=== PATIENT | female | born 1940 | race Caucasian/White ===

== ENCOUNTER → 2017-06-19 | Outpatient (REF) | payer MEDICARE | LOC: M LAB REF 13:07 | PROVIDERS: ATTEND Advanced Practice Midwife | DX: R30.0 Dysuria (principal) ==

== ENCOUNTER → 2019-04-23 | Outpatient (CLI) | payer MEDICARE ==
--- NOTE | 2019-04-23 15:29 | REP ---
RIGHT FOOT, FOUR VIEWS: HISTORY: Pain. There is no acute fracture or dislocation. The joint spaces are normal in appearance. IMPRESSION: There is no acute fracture or dislocation. Electronically Signed by Collin Haney MD 04/23/2019 03:44 P
== END ==
LOC: M ADAMS 14:55
PROVIDERS: ATTEND Physician Assistant Medical
DX: M79.671 Pain in right foot (principal)
CPT/HCPCS: 73630; G0463

== ENCOUNTER → 2019-07-31 | Outpatient (REF) | payer MEDICARE ==
[2019-07-31 13:21] LABS: BASO % 0.7 % (0.0-1.0); EOS # 0.2 10^3/uL (0.0-0.5); EOS % 3.1 % (0.0-3.0); HEMATOCRIT 40.4 % (36.0-47.0); HEMOGLOBIN 13.2 g/dl (12.0-15.5); LYMPH # 1.9 10^3/uL (1.5-5.0); LYMPH % 33.6 % (24.0-44.0); MEAN CORPUSCULAR HGB CONC 32.7 g/dl (32.0-36.5); MEAN CORPUSCULAR VOLUME 91.8 fl (80.0-96.0); MONO # 0.4 10^3/uL (0.0-0.8); MONO % 7.3 % (0.0-5.0); NEUTROPHILS % 54.9 % (36.0-66.0); PLATELET COUNT, AUTOMATED 142 10^3/uL (150-450); WHITE BLOOD COUNT 5.5 10^3/uL (4.0-10.0)
[2019-07-31 13:43] LABS: ALBUMIN 3.6 GM/DL (3.2-5.2); ALT/SGPT 72 U/L (12-78); BILIRUBIN,TOTAL 0.3 MG/DL (0.2-1.0); BLOOD UREA NITROGEN 22 MG/DL (7-18); CARBON DIOXIDE LEVEL 28 MEQ/L (21-32); CHLORIDE LEVEL 104 MEQ/L (98-107); CHOLESTEROL LEVEL 141 MG/DL (<200); CHOLESTEROL RISK RATIO 2.877 (<5); CREATININE FOR GFR 0.84 MG/DL (0.55-1.30); GLOMERULAR FILTRATION RATE > 60.0 (>39); GLUCOSE, FASTING 158 MG/DL (70-100); HDL CHOLESTEROL 49 MG/DL (>40); LDL CHOLESTEROL 60 MG/DL (<100); NON-HDL-C 92 MG/DL; POTASSIUM SERUM 4.4 MEQ/L (3.5-5.1); SODIUM LEVEL 140 MEQ/L (136-145); TOTAL PROTEIN 6.4 GM/DL (6.4-8.2); TRIGLYCERIDES LEVEL 162 MG/DL (<150)
[2019-07-31 13:57] LABS: HEMOGLOBIN A1c 8.1 %
[2019-07-31 14:07] LABS: CREATININE, URINE 94.7 MG/DL; MALB URINE SIEMENS 26.9 MG/L; MAU/CREAT RATIO 28.4 MCG/MG (0.0-30.0)
== END ==
LOC: M SFHCADAM 08:40
PROVIDERS: ATTEND Physician Assistant Medical
DX: E11.9 Type 2 diabetes mellitus without complications (principal); I10 Essential (primary) hypertension; E78.2 Mixed hyperlipidemia; M79.671 Pain in right foot

== ENCOUNTER → 2019-10-22 | Outpatient (REF) | payer MEDICARE ==
[2019-10-22 18:45] LABS: APPEARANCE, URINE HAZY (CLEAR); BACTERIA, URINE AUTO 1+ (NEGATIVE); BILIRUBIN, URINE AUTO NEGATIVE (NEGATIVE); BLOOD, URINE BLOOD NEGATIVE (NEGATIVE); COLOR, URINE YELLOW (YELLOW); GLUCOSE, URINE (UA) AUTO 3+ mg/dL (NEGATIVE); KETONE, URINE AUTO NEGATIVE (NEGATIVE); LEUKOCYTE ESTERASE, URINE AUTO 2+ (NEGATIVE); MUCUS, URINE SMALL (NEGATIVE); NITRITE, URINE AUTO POSITIVE (NEGATIVE); PROTEIN, URINE AUTO NEGATIVE (NEGATIVE); RBC, URINE AUTO 3 /HPF (0-3); SQUAMOUS EPITHELIAL CELL UR AU 1 /HPF (0-6); UROBILINOGEN, URINE AUTO 0.2 mg/dL (0.0-2.0); WBC, URINE AUTO 42 /HPF (0-3)
== END ==
LOC: M SFHCADAM 17:00
PROVIDERS: ATTEND Physician Assistant Medical
DX: R35.0 Frequency of micturition (principal)
CPT/HCPCS: 81001; 81002; 87088; 87186; G0463

== ENCOUNTER → 2020-01-18 | Outpatient (CLI) | payer MEDICARE | LOC: M ADAMS 10:34 | PROVIDERS: ATTEND Physician Assistant Medical | DX: E11.9 Type 2 diabetes mellitus without complications (principal) ==

== ENCOUNTER → 2020-01-18 | Outpatient (REF) | payer MEDICARE ==
[2020-01-18 18:09] LABS: ALBUMIN 4.1 GM/DL (3.2-5.2); ALT/SGPT 67 U/L (12-78); BILIRUBIN,TOTAL 0.3 MG/DL (0.2-1.0); BLOOD UREA NITROGEN 20 MG/DL (7-18); CALCIUM LEVEL 9.2 MG/DL (8.8-10.2); CARBON DIOXIDE LEVEL 29 MEQ/L (21-32); CHLORIDE LEVEL 104 MEQ/L (98-107); CREATININE FOR GFR 0.92 MG/DL (0.55-1.30); GLOMERULAR FILTRATION RATE > 60.0 (>39); GLUCOSE, FASTING 253 MG/DL (70-100); POTASSIUM SERUM 4.2 MEQ/L (3.5-5.1); SODIUM LEVEL 139 MEQ/L (136-145)
[2020-01-18 18:20] LABS: HEMOGLOBIN A1c 8.1 %
== END ==
LOC: M SFHCADAM 10:33
PROVIDERS: ATTEND Physician Assistant Medical
DX: E11.9 Type 2 diabetes mellitus without complications (principal)

== ENCOUNTER → 2020-05-21 | Outpatient (REF) | payer MEDICARE ==
[2020-05-21 14:19] LABS: APPEARANCE, URINE HAZY (CLEAR); BACTERIA, URINE AUTO 2+ (NEGATIVE); BILIRUBIN, URINE AUTO NEGATIVE (NEGATIVE); BLOOD, URINE BLOOD NEGATIVE (NEGATIVE); COLOR, URINE YELLOW (YELLOW); GLUCOSE, URINE (UA) AUTO 3+ mg/dL (NEGATIVE); KETONE, URINE AUTO NEGATIVE (NEGATIVE); LEUKOCYTE ESTERASE, URINE AUTO 3+ (NEGATIVE); NITRITE, URINE AUTO NEGATIVE (NEGATIVE); PROTEIN, URINE AUTO NEGATIVE (NEGATIVE); RBC, URINE AUTO 2 /HPF (0-3); SQUAMOUS EPITHELIAL CELL UR AU 0 /HPF (0-6); UROBILINOGEN, URINE AUTO 0.2 mg/dL (0.0-2.0); WBC, URINE AUTO 48 /HPF (0-3)
[2020-05-21 14:27] LABS: CALCIUM LEVEL 9.5 MG/DL (8.8-10.2); CREATININE FOR GFR 0.96 MG/DL (0.55-1.30); POTASSIUM SERUM 4.3 MEQ/L (3.5-5.1)
[2020-05-21 16:23] LABS: HEMOGLOBIN A1c 8.1 %
== END ==
LOC: M SFHCADAM 09:17
PROVIDERS: ATTEND Physician Assistant Medical
DX: R35.0 Frequency of micturition (principal); E11.9 Type 2 diabetes mellitus without complications

== ENCOUNTER → 2020-12-02 | Outpatient (REF) | payer MEDICARE ==
[2020-12-02 13:21] LABS: BASO # 0.1 10^3/uL (0.0-0.2); BASO % 0.8 % (0.0-1.0); EOS # 0.4 10^3/uL (0.0-0.5); EOS % 4.9 % (0.0-3.0); HEMATOCRIT 40.7 % (36.0-47.0); HEMOGLOBIN 13.2 g/dl (12.0-15.5); LYMPH # 2.3 10^3/uL (1.5-5.0); LYMPH % 32.1 % (24.0-44.0); MEAN CORPUSCULAR HEMOGLOBIN 28.9 pg (27.0-33.0); MEAN CORPUSCULAR HGB CONC 32.4 g/dl (32.0-36.5); MEAN CORPUSCULAR VOLUME 89.1 fl (80.0-96.0); MONO # 0.5 10^3/uL (0.0-0.8); MONO % 7.2 % (0.0-5.0); NEUTROPHILS # 3.9 10^3/uL (1.5-8.5); NEUTROPHILS % 54.7 % (36.0-66.0); PLATELET COUNT, AUTOMATED 139 10^3/uL (150-450); RED BLOOD COUNT 4.57 10^6/uL (4.00-5.40); WHITE BLOOD COUNT 7.1 10^3/uL (4.0-10.0)
[2020-12-02 13:55] LABS: ALBUMIN 3.9 GM/DL (3.2-5.2); ALT/SGPT 49 U/L (12-78); BILIRUBIN,TOTAL 0.2 MG/DL (0.2-1.0); BLOOD UREA NITROGEN 21 MG/DL (7-18); CALCIUM LEVEL 9.7 MG/DL (8.8-10.2); CARBON DIOXIDE LEVEL 31 MEQ/L (21-32); CHLORIDE LEVEL 104 MEQ/L (98-107); CHOLESTEROL LEVEL 175 MG/DL (<200); CHOLESTEROL RISK RATIO 3.017 (<5); CREATININE FOR GFR 0.91 MG/DL (0.55-1.30); GLOMERULAR FILTRATION RATE > 60.0 (>39); GLUCOSE, FASTING 185 MG/DL (70-100); HDL CHOLESTEROL 58 MG/DL (>40); LDL CHOLESTEROL 75 MG/DL (<100); NON-HDL-C 117 MG/DL; POTASSIUM SERUM 4.6 MEQ/L (3.5-5.1); SODIUM LEVEL 142 MEQ/L (136-145); TOTAL 25(OH) VITAMIN D 51.3 NG/ML (30.0-100.0); TOTAL PROTEIN 6.9 GM/DL (6.4-8.2); TRIGLYCERIDES LEVEL 210 MG/DL (<150)
[2020-12-02 13:58] LABS: MALB URINE SIEMENS 20.9 MG/L
[2020-12-02 14:15] LABS: HEMOGLOBIN A1c 7.5 %
== END ==
LOC: M SFHCADAM 08:44
PROVIDERS: ATTEND Physician Assistant Medical
DX: I10 Essential (primary) hypertension (principal); E78.2 Mixed hyperlipidemia; K76.0 Fatty (change of) liver, not elsewhere classified; E11.9 Type 2 diabetes mellitus without complications; K21.9 Gastro-esophageal reflux disease without esophagitis; Z79.899 Other long term (current) drug therapy

== ENCOUNTER → 2021-03-30 | Outpatient (REF) | payer MEDICARE ==
[2021-03-30 12:44] LABS: APPEARANCE, URINE HAZY (CLEAR); BACTERIA, URINE AUTO NEGATIVE (NEGATIVE); BILIRUBIN, URINE AUTO NEGATIVE (NEGATIVE); BLOOD, URINE BLOOD NEGATIVE (NEGATIVE); COLOR, URINE YELLOW (YELLOW); GLUCOSE, URINE (UA) AUTO 3+ mg/dL (NEGATIVE); KETONE, URINE AUTO NEGATIVE (NEGATIVE); LEUKOCYTE ESTERASE, URINE AUTO 2+ (NEGATIVE); NITRITE, URINE AUTO NEGATIVE (NEGATIVE); PROTEIN, URINE AUTO NEGATIVE (NEGATIVE); RBC, URINE AUTO 2 /HPF (0-3); SPECIFIC GRAVITY URINE AUTO 1.018 (1.002-1.035); SQUAMOUS EPITHELIAL CELL UR AU 0 /HPF (0-6); UROBILINOGEN, URINE AUTO 0.2 mg/dL (0.0-2.0); WBC, URINE AUTO 26 /HPF (0-3)
== END ==
LOC: M SFHCADAM 11:02
PROVIDERS: ATTEND Physician Assistant Medical
DX: R39.15 Urgency of urination (principal)

== ENCOUNTER → 2021-03-30 | Outpatient (CLI) | payer MEDICARE ==
--- NOTE | 2021-03-30 11:18 | REP ---
INDICATION: RIGHT LEG PAIN. COMPARISON: None TECHNIQUE: AP and frog-lateral views FINDINGS: There is moderate asymmetric hip joint space narrowing with femoral head marginal osteophytosis. There is no acute fracture, dislocation, or subluxation. IMPRESSION: Chronic changes as described above. <Electronically signed by Trae Michael > 03/30/21 1117
--- NOTE | 2021-03-30 11:20 | REP ---
INDICATION: RIGHT LEG PAIN. COMPARISON: None. TECHNIQUE: Six views FINDINGS: There is a [id number]-jhdpsyfr dextroconvex thoracolumbar curve. There is bilateral marginal osteophytosis at all levels. There is moderate to severe disc space narrowing at all levels particularly L1-2. There is anterior lipping at every level. Endplate sclerosis is seen L1-2 and L2-3. Vertebral body height is within normal limits. Degenerative facet joint changes are present at every level bilaterally particularly L4-5 and L5-S1. IMPRESSION: Chronic changes as described above. <Electronically signed by Trae Michael > 03/30/21 [id number]
== END ==
LOC: M ADAMS 10:43
PROVIDERS: ATTEND Physician Assistant Medical
DX: M51.36 Other intervertebral disc degeneration, lumbar region (principal); M51.37 Other intervertebral disc degeneration, lumbosacral region; M16.11 Unilateral primary osteoarthritis, right hip; M79.604 Pain in right leg

== ENCOUNTER → 2021-04-19 | Outpatient (CLI) | payer MEDICARE ==
--- NOTE | 2021-04-19 14:13 | REP ---
INDICATION: PAIN IN LEFT HIP. COMPARISON: Only a two view exam of the right hip obtained 03/30/2021 TECHNIQUE: Standing AP view of the pelvis FINDINGS: There is bilateral asymmetric hip joint space narrowing which is moderate. There is no evidence of an acute fracture, dislocation, or subluxation. The appearance of the right hip is essentially unchanged from the prior exam obtained 03/30/2021 IMPRESSION: As above <Electronically signed by Trae Michael > 04/19/21 [id number]
== END ==
LOC: M SOG 08:22
PROVIDERS: ATTEND Orthopaedic Surgery Adult Reconstructive Orthopaedic Surgery
DX: M25.552 Pain in left hip (principal)

== ENCOUNTER → 2021-05-07 | Outpatient (CLI) | payer MEDICARE ==
[~2021-05-07] MED LIST: BUPIVACAINE HCL 0.5% 10ML VIAL As Ordered ONE; ISOVUE-300 61% 50ML VIAL As Ordered ONE; LIDOCAINE 1% MDV 20ML VIAL As Ordered ONE; methylPREDNISolone 80MG/ML SUSP 1ML VIAL (J1040) As Ordered ONE
--- NOTE | 2021-05-07 14:51 | REP ---
INDICATION: OA OF RT HIP. COMPARISON: None TECHNIQUE: The procedure was performed by SCARLET Lynn, under the direct supervision of Dr. Garcia. The right femoral neck joint space was localized using fluoroscopic guidance. The skin was prepped and draped in a sterile fashion. Approximately 5 mL of 1% Lidocaine 10 mg/ml was used as a local anesthetic. Using fluoroscopic guidance, a #22 gauge spinal needle was inserted and advanced into the right femoral neck joint space. Approximately 1 mL of Isovue 300 was injected to verify placement. Four mL of a solution containing 3 mL 0.5% bupivacaine 5 mg/ml and 1 mL Depo-Medrol 80 milligrams/milliliter was injected into the joint space. The needle was removed and hemostasis was achieved. FINDINGS: The patient tolerated the procedure well and there were no immediate complications. IMPRESSION: 1. Fluoroscopically guided right hip intra-articular pain injection. 0.1 minutes of fluoroscopy time was utilized for this procedure. Some fluoroscopic images are performed with last image hold technology. These images require no additional radiation. <Electronically signed by Marissa Savage > 05/07/21 122 <Electronically signed by Elias Gracia > 05/07/21 [id number]
== END ==
LOC: M RADPRO 10:16
PROVIDERS: ATTEND Orthopaedic Surgery Adult Reconstructive Orthopaedic Surgery
DX: M16.11 Unilateral primary osteoarthritis, right hip (principal)
CPT/HCPCS: 20610; 77002; J1040; Q9967

== ENCOUNTER → 2021-05-28 | Outpatient (REF) | payer MEDICARE ==
[2021-05-28 13:23] LABS: APPEARANCE, URINE CLOUDY (CLEAR); BACTERIA, URINE AUTO 1+ (NEGATIVE); BILIRUBIN, URINE AUTO NEGATIVE (NEGATIVE); BLOOD, URINE BLOOD NEGATIVE (NEGATIVE); COLOR, URINE YELLOW (YELLOW); GLUCOSE, URINE (UA) AUTO 3+ mg/dL (NEGATIVE); KETONE, URINE AUTO NEGATIVE (NEGATIVE); LEUKOCYTE ESTERASE, URINE AUTO 3+ (NEGATIVE); MUCUS, URINE SMALL (NEGATIVE); NITRITE, URINE AUTO NEGATIVE (NEGATIVE); PROTEIN, URINE AUTO NEGATIVE (NEGATIVE); RBC, URINE AUTO 6 /HPF (0-3); SPECIFIC GRAVITY URINE AUTO 1.015 (1.002-1.035); SQUAMOUS EPITHELIAL CELL UR AU 0 /HPF (0-6); UROBILINOGEN, URINE AUTO 0.2 mg/dL (0.0-2.0); WBC, URINE AUTO 89 /HPF (0-3)
== END ==
LOC: M LAB REF 12:27
PROVIDERS: ATTEND Physician Assistant
DX: R30.0 Dysuria (principal)

== ENCOUNTER → 2021-06-02 | Outpatient (REF) | payer MEDICARE ==
[2021-06-02 15:03] LABS: BASO % 0.6 % (0.0-1.0); EOS # 0.2 10^3/uL (0.0-0.5); EOS % 3.3 % (0.0-3.0); HEMATOCRIT 40.3 % (36.0-47.0); HEMOGLOBIN 12.8 g/dl (12.0-15.5); LYMPH % 29.8 % (24.0-44.0); MEAN CORPUSCULAR HEMOGLOBIN 28.8 pg (27.0-33.0); MEAN CORPUSCULAR HGB CONC 31.8 g/dl (32.0-36.5); MEAN CORPUSCULAR VOLUME 90.8 fl (80.0-96.0); MONO # 0.5 10^3/uL (0.0-0.8); MONO % 7.1 % (2.0-8.0); NEUTROPHILS # 3.9 10^3/uL (1.5-8.5); NEUTROPHILS % 58.7 % (36.0-66.0); PLATELET COUNT, AUTOMATED 146 10^3/uL (150-450); RED BLOOD COUNT 4.44 10^6/uL (4.00-5.40); WHITE BLOOD COUNT 6.6 10^3/uL (4.0-10.0)
[2021-06-02 15:15] LABS: HEMOGLOBIN A1c 7.3 %
[2021-06-02 15:46] LABS: ALBUMIN 3.6 GM/DL (3.2-5.2); BILIRUBIN,TOTAL 0.4 MG/DL (0.2-1.0); CHOLESTEROL RISK RATIO 3.25 (<5); CREATININE FOR GFR 1.06 MG/DL (0.55-1.30); GLOMERULAR FILTRATION RATE 53.4 (>39); POTASSIUM SERUM 5.5 MEQ/L (3.5-5.1); THYROID STIMULATING HORMONE 1.73 uIU/ML (0.358-3.740); TOTAL 25(OH) VITAMIN D 38.5 NG/ML (30.0-100.0); TOTAL PROTEIN 6.6 GM/DL (6.4-8.2)
== END ==
LOC: M SFHCADAM 09:03
PROVIDERS: ATTEND Physician Assistant Medical
DX: E78.2 Mixed hyperlipidemia (principal); E11.9 Type 2 diabetes mellitus without complications; K75.81 Nonalcoholic steatohepatitis (NASH)

== ENCOUNTER → 2021-06-18 | Outpatient (REF) | payer MEDICARE | LOC: M SFHCADAM 14:44 | PROVIDERS: ATTEND Family Medicine | DX: R39.15 Urgency of urination (principal) ==

== ENCOUNTER → 2021-10-21 | Outpatient (CLI) | payer MEDICARE ==
--- NOTE | 2021-10-21 16:40 | REP ---
INDICATION: HIP OSTEOARTHRITIS. COMPARISON: 04/19/2021. TECHNIQUE: Single AP view pelvis and hips. FINDINGS: Once again the iliac crests are not visualized. There is no acute fracture or dislocation. There is stable asymmetric joint space narrowing of the right hip joint. IMPRESSION: Stable exam. <Electronically signed by Elias Garcia > 10/21/21 [id number]
== END ==
LOC: M SOG 11:38
PROVIDERS: ATTEND Orthopaedic Surgery Adult Reconstructive Orthopaedic Surgery
DX: M16.9 Osteoarthritis of hip, unspecified (principal)

== ENCOUNTER → 2021-11-17 | Outpatient (REF) | payer MEDICARE ==
[2021-11-17 12:34] LABS: BASO # 0.1 10^3/uL (0.0-0.2); EOS # 0.3 10^3/uL (0.0-0.5); EOS % 5.4 % (0.0-3.0); HEMATOCRIT 40.4 % (36.0-47.0); LYMPH % 31.4 % (24.0-44.0); MEAN CORPUSCULAR HEMOGLOBIN 28.6 pg (27.0-33.0); MEAN CORPUSCULAR HGB CONC 32.2 g/dl (32.0-36.5); MEAN CORPUSCULAR VOLUME 88.8 fl (80.0-96.0); MONO # 0.4 10^3/uL (0.0-0.8); NEUTROPHILS # 3.5 10^3/uL (1.5-8.5); NEUTROPHILS % 54.9 % (36.0-66.0); PLATELET COUNT, AUTOMATED 152 10^3/uL (150-450); RED BLOOD COUNT 4.55 10^6/uL (4.00-5.40); WHITE BLOOD COUNT 6.3 10^3/uL (4.0-10.0)
[2021-11-17 13:54] LABS: ALBUMIN 3.6 GM/DL (3.2-5.2); ALT/SGPT 26 U/L (12-78); BILIRUBIN,TOTAL 0.3 MG/DL (0.2-1.0); BLOOD UREA NITROGEN 15 MG/DL (7-18); CARBON DIOXIDE LEVEL 30 MEQ/L (21-32); CHLORIDE LEVEL 106 MEQ/L (98-107); CHOLESTEROL LEVEL 163 MG/DL (<200); CHOLESTEROL RISK RATIO 2.963 (<5); CREATININE FOR GFR 0.84 MG/DL (0.55-1.30); GLOMERULAR FILTRATION RATE > 60.0 (>39); GLUCOSE, FASTING 143 MG/DL (70-100); HDL CHOLESTEROL 55 MG/DL (>40); LDL CHOLESTEROL 70 MG/DL (<100); NON-HDL-C 108 MG/DL; POTASSIUM SERUM 4.3 MEQ/L (3.5-5.1); SODIUM LEVEL 141 MEQ/L (136-145); TOTAL 25(OH) VITAMIN D 31.9 NG/ML (30.0-100.0); TOTAL PROTEIN 6.3 GM/DL (6.4-8.2); TRIGLYCERIDES LEVEL 188 MG/DL (<150)
[2021-11-17 14:03] LABS: HEMOGLOBIN A1c 7.2 %
== END ==
LOC: M SFHCADAM 08:00
PROVIDERS: ATTEND Physician Assistant Medical
DX: E11.9 Type 2 diabetes mellitus without complications (principal); I10 Essential (primary) hypertension; E78.2 Mixed hyperlipidemia; K75.81 Nonalcoholic steatohepatitis (NASH); K21.9 Gastro-esophageal reflux disease without esophagitis

== ENCOUNTER → 2021-11-25 | Outpatient (REF) | payer MEDICARE | LOC: M SFHCADAM 13:49 | PROVIDERS: ATTEND Physician Assistant Medical | DX: R39.15 Urgency of urination (principal) ==

== ENCOUNTER → 2022-01-24 | Outpatient (CLI) | payer MEDICARE ==
[~2022-01-24] MED LIST changes: -BUPIVACAINE HCL 0.5% 10ML VIAL As Ordered ONE; +FLUTISP; +GLIM4TAB5 PO; -ISOVUE-300 61% 50ML VIAL As Ordered ONE; +LEVO25TA5 PO; -LIDOCAINE 1% MDV 20ML VIAL As Ordered ONE; +LISI10TA22 PO; +METF10004 PO; +MULT-90 PO; +OMEG10002 PO; +OMEP-173 PO; +SIMV40TA20 PO; +VITA100062 PO; +VITA400C83 PO; -methylPREDNISolone 80MG/ML SUSP 1ML VIAL (J1040) As Ordered ONE
== END ==
LOC: M RAD 17:05
PROVIDERS: ATTEND Orthopaedic Surgery Adult Reconstructive Orthopaedic Surgery
DX: M17.11 Unilateral primary osteoarthritis, right knee (principal)

== ENCOUNTER 2022-01-26 10:48 | Outpatient (RCR) | payer MEDICARE ==
[2022-02-08] MEDS ORDERED: OXYC-517 PO (10:22)
== END 2022-02-10 ==
LOC: M PT 10:48
PROVIDERS: ATTEND Orthopaedic Surgery Adult Reconstructive Orthopaedic Surgery
DX: R26.2 Difficulty in walking, not elsewhere classified (principal)

== ENCOUNTER → 2022-01-27 | Outpatient (REF) | payer MEDICARE ==
[~2022-01-27] MED LIST changes: +OXYC-517 PO
[2022-01-27 13:51] LABS: AMORPHOUS SEDIMENT SMALL (NEGATIVE); APPEARANCE, URINE CLOUDY (CLEAR); BACTERIA, URINE AUTO 1+ (NEGATIVE); BILIRUBIN, URINE AUTO NEGATIVE (NEGATIVE); BLOOD, URINE BLOOD NEGATIVE (NEGATIVE); COLOR, URINE YELLOW (YELLOW); GLUCOSE, URINE (UA) AUTO 3+ mg/dL (NEGATIVE); KETONE, URINE AUTO NEGATIVE (NEGATIVE); LEUKOCYTE ESTERASE, URINE AUTO 3+ (NEGATIVE); MUCUS, URINE SMALL (NEGATIVE); NITRITE, URINE AUTO NEGATIVE (NEGATIVE); PROTEIN, URINE AUTO NEGATIVE (NEGATIVE); RBC, URINE AUTO 4 /HPF (0-3); SPECIFIC GRAVITY URINE AUTO 1.009 (1.002-1.035); SQUAMOUS EPITHELIAL CELL UR AU 1 /HPF (0-6); UROBILINOGEN, URINE AUTO 0.2 mg/dL (0.0-2.0); WBC, URINE AUTO 108 /HPF (0-3)
== END ==
LOC: M SFHCADAM 12:24
PROVIDERS: ATTEND Physician Assistant Medical
DX: R39.15 Urgency of urination (principal)

== ENCOUNTER → 2022-01-31 | Outpatient (REF) | payer MEDICARE ==
[2022-01-31 16:53] LABS: BASO # 0.1 10^3/uL (0.0-0.2); BASO % 0.7 % (0.0-1.0); EOS # 0.4 10^3/uL (0.0-0.5); EOS % 4.1 % (0.0-3.0); HEMATOCRIT 41.2 % (36.0-47.0); HEMOGLOBIN 13.8 g/dl (12.0-15.5); LYMPH # 2.3 10^3/uL (1.5-5.0); LYMPH % 25.5 % (24.0-44.0); MEAN CORPUSCULAR HEMOGLOBIN 29.6 pg (27.0-33.0); MEAN CORPUSCULAR HGB CONC 33.5 g/dl (32.0-36.5); MEAN CORPUSCULAR VOLUME 88.2 fl (80.0-96.0); MONO # 0.5 10^3/uL (0.0-0.8); NEUTROPHILS # 5.6 10^3/uL (1.5-8.5); NEUTROPHILS % 63.2 % (36.0-66.0); PLATELET COUNT, AUTOMATED 171 10^3/uL (150-450); RED BLOOD COUNT 4.67 10^6/uL (4.00-5.40); WHITE BLOOD COUNT 8.9 10^3/uL (4.0-10.0)
[2022-01-31 17:15] LABS: ALBUMIN 3.9 GM/DL (3.2-5.2); ALT/SGPT 27 U/L (12-78); BILIRUBIN,TOTAL 0.3 MG/DL (0.2-1.0); BLOOD UREA NITROGEN 19 MG/DL (7-18); CALCIUM LEVEL 9.7 MG/DL (8.8-10.2); CARBON DIOXIDE LEVEL 30 MEQ/L (21-32); CHLORIDE LEVEL 104 MEQ/L (98-107); GLOMERULAR FILTRATION RATE > 60.0 (>39); GLUCOSE, FASTING 103 MG/DL (70-100); POTASSIUM SERUM 4.1 MEQ/L (3.5-5.1); SODIUM LEVEL 139 MEQ/L (136-145)
== END ==
LOC: M SFHCADAM 14:31
PROVIDERS: ATTEND Physician Assistant Medical
DX: Z01.818 Encounter for other preprocedural examination (principal); M16.11 Unilateral primary osteoarthritis, right hip

== ENCOUNTER → 2022-02-02 | Outpatient (CLI) | payer MEDICARE ==
[~2022-02-02] MED LIST changes: -OXYC-517 PO
== END ==
LOC: M LABSMTC 10:45
PROVIDERS: ATTEND Anesthesiology
DX: Z11.52 Encounter for screening for COVID-19 (principal)

== ENCOUNTER 2022-02-07 08:56 | Inpatient (IN) | payer MEDICARE ==
[~2022-02-07] VITALS: Ht 167.6 cm; Wt 73.7 kg
[~2022-02-07 08:56] MED LIST changes: +ACETAMINOPHEN 500 MG TAB PO ONE; +LIDOCAINE 2% 100MG/5ML SDV (FOR ANES.) As Ordered ONE; +LR 1,000 ML IV ONE; +NAPROXEN 250 MG TAB PO ONE; +NS 1,000 ML IV ONE; +ONDANSETRON 4MG/2ML VIAL As Ordered ONE; +PREGABALIN 25 MG CAP (LYRICA) PO ONE; +ROCURONIUM BROMIDE 50 MG/5 ML VIAL As Ordered ONE; +ROPIVA 125MG/EPINEPH 0.25MG/CLONID 40MCG/KETOR 15MG IN NS 50ML SYRINGE PA ONE; +SUGAMMADEX SODIUM 500 MG/5 ML VIAL (BRIDION) As Ordered ONE; +VANCOMYCIN HCL 1,000 MG, VIAL MATE ADAPTER 1 EACH in NS 250 ML IV ONE; +dexameTHASONE 4 MG/ML 1ML VIAL (J1100 PER 1MG) As Ordered ONE; +dexameTHASONE 4 MG/ML 1ML VIAL (J1100 PER 1MG) IV ONE; +fentaNYL 100 MCG/2 ML INJECTION As Ordered ONE; +propofoL 200 MG/20 ML VIAL As Ordered ONE
[2022-02-07] MEDS ORDERED: TRANEXAMIC ACID 100 MG/ML 10ML VIAL As Ordered ONE (10:39)
[2022-02-07] MEDS ORDERED: ACETAMINOPHEN 1000MG 100ML IV BTL (OFIRMEV) (J0131 PER 10MG) As Ordered ONE (11:46)
[2022-02-07] MEDS ORDERED: ROCURONIUM BROMIDE 50 MG/5 ML VIAL As Ordered ONE (12:17)
[2022-02-07] MEDS ORDERED: fentaNYL 100 MCG/2 ML INJECTION As Ordered ONE (12:19)
[2022-02-07] MEDS ORDERED: traMADol 50 MG TAB PO PRN (14:15)
[2022-02-07] MEDS ORDERED: SENNA 8.6 MG TAB (SENOKOT) PO PRN (14:15)
[2022-02-07] MEDS ORDERED: ONDANSETRON 4MG/2ML VIAL IV PRN ×2 (14:15→14:25)
[2022-02-07] MEDS ORDERED: oxyCODONE 5MG TAB PO PRN ×3 (14:15→14:25)
[2022-02-07] MEDS ORDERED: LR 1,000 ML IV SCH ×2 (14:20→14:25)
[2022-02-07] MEDS ORDERED: fentaNYL 100 MCG/2 ML INJECTION IV PRN (14:25)
[2022-02-07] MEDS ORDERED: DEXTROSE 50% 50 ML SYRINGE IV PRN (14:30)
[2022-02-07] MEDS ORDERED: GLUCOSE 4GM CHEW TABLET PO PRN (14:30)
[2022-02-07] MEDS ORDERED: GLUCAGON INJ 1MG VIAL SC PRN (14:30)
[2022-02-07 15:00] VITALS: BP 134/64
[2022-02-07] MEDS: LEVOTHYROXINE 25MCG TABLET (0.025MG) PO SCH (15:00)
[2022-02-07] MEDS: FLUTICASONE PROP 0.05% NASAL SPRAY 16 GM (FLONASE) SCH (15:00)
[2022-02-07 15:30] VITALS: BP 134/60
[2022-02-07] MEDS: OMEPRAZOLE 20MG CAP PO SCH (15:30)
[2022-02-07] MEDS: SIMVASTATIN 40 MG TAB PO SCH (15:30)
[2022-02-07 15:58] LABS: INR 0.99; PARTIAL THROMBOPLASTIN TIME 27.1 SECONDS (25.9-37.0); PROTHROMBIN TIME 13.5 SECONDS (12.7-14.5)
[2022-02-07 16:00] VITALS: BP 133/59
[2022-02-07 17:00] VITALS: BP 127/58
[2022-02-07 18:00] VITALS: BP 126/57
[2022-02-07] MEDS: ACETAMINOPHEN TAB 650MG DOSE (2X325MG) PO SCH (18:41)
[2022-02-07] MEDS: HumaLOG INSULIN (NovoLOG) PER UNIT SC SCH (18:41)
[2022-02-07 19:52] VITALS: BP 149/74
[2022-02-07] MEDS: NAPROXEN 250 MG TAB PO SCH (20:57)
[2022-02-07] MEDS: DOCUSATE SODIUM 100MG CAPSULE PO SCH (20:57)
[2022-02-07] MEDS: ASPIRIN 81MG ENTERIC TABLET PO SCH (20:57)
[2022-02-07] MEDS: VANCOMYCIN HCL 1,000 MG, VIAL MATE ADAPTER 1 EACH in NS 250 ML IV SCH (20:58)
[2022-02-07] MEDS ORDERED: HumaLOG INSULIN (NovoLOG) PER UNIT SC SCH (21:00)
[2022-02-08] MEDS: ACETAMINOPHEN TAB 650MG DOSE (2X325MG) PO SCH ×3 (00:26→12:20)
[2022-02-08 01:10] VITALS: BP 140/72
[2022-02-08 04:01] VITALS: BP 141/79
[2022-02-08] MEDS: LEVOTHYROXINE 25MCG TABLET (0.025MG) PO SCH (05:06)
[2022-02-08 05:13] LABS: HEMATOCRIT 32.2 % (36.0-47.0); HEMOGLOBIN 10.7 g/dl (12.0-15.5); MEAN CORPUSCULAR HEMOGLOBIN 29.1 pg (27.0-33.0); MEAN CORPUSCULAR HGB CONC 33.2 g/dl (32.0-36.5); MEAN CORPUSCULAR VOLUME 87.5 fl (80.0-96.0); PLATELET COUNT, AUTOMATED 143 10^3/uL (150-450); RED BLOOD COUNT 3.68 10^6/uL (4.00-5.40); WHITE BLOOD COUNT 12.3 10^3/uL (4.0-10.0)
[2022-02-08 05:35] LABS: ALBUMIN 3.2 GM/DL (3.2-5.2); BILIRUBIN,TOTAL 0.4 MG/DL (0.2-1.0); CALCIUM LEVEL 8.4 MG/DL (8.8-10.2); CREATININE FOR GFR 1.18 MG/DL (0.55-1.30); POTASSIUM SERUM 4.3 MEQ/L (3.5-5.1); TOTAL PROTEIN 5.5 GM/DL (6.4-8.2)
[2022-02-08] MEDS: HumaLOG INSULIN (NovoLOG) PER UNIT SC SCH ×2 (06:30→12:00)
[2022-02-08] MEDS: FLUTICASONE PROP 0.05% NASAL SPRAY 16 GM (FLONASE) SCH (09:00)
[2022-02-08] MEDS ORDERED: FLUTICASONE PROP 0.05% NASAL SPRAY 16 GM (FLONASE) SCH (09:00)
[2022-02-08] MEDS ORDERED: ASCORBIC ACID 500 MG TAB PO SCH (09:00)
[2022-02-08] MEDS ORDERED: FERROUS SULFATE 325MG TAB PO SCH (09:00)
[2022-02-08] MEDS: OMEPRAZOLE 20MG CAP PO SCH (09:17)
[2022-02-08] MEDS: ASPIRIN 81MG ENTERIC TABLET PO SCH (09:17)
[2022-02-08] MEDS: DOCUSATE SODIUM 100MG CAPSULE PO SCH (09:17)
[2022-02-08] MEDS: VANCOMYCIN HCL 1,000 MG, VIAL MATE ADAPTER 1 EACH in NS 250 ML IV SCH (09:17)
[2022-02-08 09:18] VITALS: BP 141/79
[2022-02-08] MEDS: NAPROXEN 250 MG TAB PO SCH (09:18)
[2022-02-08] MEDS: SIMVASTATIN 40 MG TAB PO SCH (09:20)
[2022-02-08 10:00] VITALS: BP 138/55
[2022-02-08] MEDS ORDERED: OXYC-517 PO (10:22)
== END 2022-02-08 14:15 | disposition home health service (06) | DRG 470 ==
LOC: M SDC 08:56 → M ED INP 14:29 → M MS5PR 15:00
PROVIDERS: ADMIT Internal Medicine; ATTEND Orthopaedic Surgery Adult Reconstructive Orthopaedic Surgery
PROC: 8E0Y0CZ Robotic Assisted Procedure of Lower Extremity, Open Approach (ICD-10-PCS; 2022-02-07)
PROC: 0SR904Z Replacement of Right Hip Joint with Ceramic on Polyethylene Synthetic Substitute, Open Approach (ICD-10-PCS; principal; 2022-02-07 10:45)
DX: M16.11 Unilateral primary osteoarthritis, right hip (principal); E11.9 Type 2 diabetes mellitus without complications; K21.9 Gastro-esophageal reflux disease without esophagitis; E03.9 Hypothyroidism, unspecified; E78.5 Hyperlipidemia, unspecified; I10 Essential (primary) hypertension; N32.81 Overactive bladder; Z96.652 Presence of left artificial knee joint; Z87.891 Personal history of nicotine dependence; Z79.84 Long term (current) use of oral hypoglycemic drugs; Z79.899 Other long term (current) drug therapy; Z88.0 Allergy status to penicillin; Z88.1 Allergy status to other antibiotic agents

== ENCOUNTER → 2022-03-01 | Outpatient (REF) | payer MEDICARE ==
[~2022-03-01] MED LIST changes: -ACETAMINOPHEN 500 MG TAB PO ONE; -LIDOCAINE 2% 100MG/5ML SDV (FOR ANES.) As Ordered ONE; -LR 1,000 ML IV ONE; -NAPROXEN 250 MG TAB PO ONE; -NS 1,000 ML IV ONE; -ONDANSETRON 4MG/2ML VIAL As Ordered ONE; +OXYC-517 PO; -PREGABALIN 25 MG CAP (LYRICA) PO ONE; -ROCURONIUM BROMIDE 50 MG/5 ML VIAL As Ordered ONE; -ROPIVA 125MG/EPINEPH 0.25MG/CLONID 40MCG/KETOR 15MG IN NS 50ML SYRINGE PA ONE; -SUGAMMADEX SODIUM 500 MG/5 ML VIAL (BRIDION) As Ordered ONE; -VANCOMYCIN HCL 1,000 MG, VIAL MATE ADAPTER 1 EACH in NS 250 ML IV ONE; -dexameTHASONE 4 MG/ML 1ML VIAL (J1100 PER 1MG) As Ordered ONE; -dexameTHASONE 4 MG/ML 1ML VIAL (J1100 PER 1MG) IV ONE; -fentaNYL 100 MCG/2 ML INJECTION As Ordered ONE; -propofoL 200 MG/20 ML VIAL As Ordered ONE
[2022-03-01 13:19] LABS: APPEARANCE, URINE CLOUDY (CLEAR); BACTERIA, URINE AUTO 3+ (NEGATIVE); BILIRUBIN, URINE AUTO NEGATIVE (NEGATIVE); BLOOD, URINE BLOOD NEGATIVE (NEGATIVE); COLOR, URINE YELLOW (YELLOW); GLUCOSE, URINE (UA) AUTO 1+ mg/dL (NEGATIVE); KETONE, URINE AUTO NEGATIVE (NEGATIVE); LEUKOCYTE ESTERASE, URINE AUTO 3+ (NEGATIVE); MUCUS, URINE SMALL (NEGATIVE); NITRITE, URINE AUTO POSITIVE (NEGATIVE); PROTEIN, URINE AUTO NEGATIVE (NEGATIVE); RBC, URINE AUTO 14 /HPF (0-3); SPECIFIC GRAVITY URINE AUTO 1.014 (1.002-1.035); SQUAMOUS EPITHELIAL CELL UR AU 1 /HPF (0-6); TRANSITIONAL EPITHELIAL AUTO <1 /HPF; UROBILINOGEN, URINE AUTO 0.2 mg/dL (0.0-2.0); WBC, URINE AUTO TNTC /HPF (0-3)
== END ==
LOC: M SFHCPLAZ 12:52
PROVIDERS: ATTEND Physician Assistant
DX: R35.0 Frequency of micturition (principal)

== ENCOUNTER → 2022-04-06 | Outpatient (CLI) | payer MEDICARE | LOC: M RAD 14:31 | PROVIDERS: ATTEND Nurse Practitioner Women's Health | DX: Z87.440 Personal history of urinary (tract) infections (principal) ==

== ENCOUNTER → 2022-04-20 | Outpatient (REF) | payer MEDICARE ==
[2022-04-20 13:22] LABS: HEMATOCRIT 37.5 % (36.0-47.0); HEMOGLOBIN 11.8 g/dl (12.0-15.5); MEAN CORPUSCULAR HEMOGLOBIN 28.9 pg (27.0-33.0); MEAN CORPUSCULAR HGB CONC 31.5 g/dl (32.0-36.5); MEAN CORPUSCULAR VOLUME 91.7 fl (80.0-96.0); PLATELET COUNT, AUTOMATED 151 10^3/uL (150-450); RED BLOOD COUNT 4.09 10^6/uL (4.00-5.40); WHITE BLOOD COUNT 6.1 10^3/uL (4.0-10.0)
[2022-04-20 13:28] LABS: HEMOGLOBIN A1c 6.5 %
[2022-04-20 13:47] LABS: ALBUMIN 3.6 GM/DL (3.2-5.2); ALT/SGPT 22 U/L (12-78); BILIRUBIN,TOTAL 0.2 MG/DL (0.2-1.0); BLOOD UREA NITROGEN 19 MG/DL (7-18); CALCIUM LEVEL 9.7 MG/DL (8.8-10.2); CARBON DIOXIDE LEVEL 30 MEQ/L (21-32); CHLORIDE LEVEL 109 MEQ/L (98-107); CHOLESTEROL LEVEL 174 MG/DL (<200); CREATININE FOR GFR 0.85 MG/DL (0.55-1.30); GLOMERULAR FILTRATION RATE > 60.0 (>39); GLUCOSE, FASTING 133 MG/DL (70-100); HDL CHOLESTEROL 71 MG/DL (>40); LDL CHOLESTEROL 81 MG/DL (<100); NON-HDL-C 103 MG/DL; POTASSIUM SERUM 4.5 MEQ/L (3.5-5.1); SODIUM LEVEL 145 MEQ/L (136-145); TOTAL PROTEIN 6.6 GM/DL (6.4-8.2); TRIGLYCERIDES LEVEL 110 MG/DL (<150)
== END ==
LOC: M SFHCADAM 08:10
PROVIDERS: ATTEND Physician Assistant Medical
DX: I10 Essential (primary) hypertension (principal); E78.2 Mixed hyperlipidemia; E11.9 Type 2 diabetes mellitus without complications; K75.81 Nonalcoholic steatohepatitis (NASH)

== ENCOUNTER → 2022-07-27 | Outpatient (CLI) | payer MEDICARE ==
[~2022-07-27] MED LIST changes: +VALA1TAB5
== END ==
LOC: M SOG 14:33
PROVIDERS: ATTEND Orthopaedic Surgery Adult Reconstructive Orthopaedic Surgery
DX: Z96.641 Presence of right artificial hip joint (principal)

== ENCOUNTER 2022-07-31 09:15 | Emergency (ER) | payer MEDICARE ==
[~2022-07-31] VITALS: Ht 167.6 cm; Wt 75.3 kg
[~2022-07-31 09:15] MED LIST changes: -VALA1TAB5
[2022-07-31] MEDS ORDERED: VALA1TAB5 (09:27)
[2022-07-31] MEDS ORDERED: LIDOCAINE 2% 5ML JELLY UROJET TOP ONE (10:25)
[2022-07-31] MEDS ORDERED: NS 500 ML IV ONE (10:25)
[2022-07-31 10:51] LABS: HEMATOCRIT 37.4 % (36.0-47.0); HEMOGLOBIN 12.3 g/dl (12.0-15.5); MEAN CORPUSCULAR HEMOGLOBIN 28.1 pg (27.0-33.0); MEAN CORPUSCULAR HGB CONC 32.9 g/dl (32.0-36.5); MEAN CORPUSCULAR VOLUME 85.6 fl (80.0-96.0); PLATELET COUNT, AUTOMATED 143 10^3/uL (150-450); RED BLOOD COUNT 4.37 10^6/uL (4.00-5.40); WHITE BLOOD COUNT 6.7 10^3/uL (4.0-10.0)
[2022-07-31] MEDS ORDERED: ISOVUE-370 76% 100ML VIAL As Ordered ONE (11:22)
[2022-07-31 11:30] LABS: ATYPICAL LYMPH 9 % (0-5); BASOPHILS 2 % (0-1); EOSINOPHILS 3 % (0-3); LYMPHOCYTES 19 % (16-44); MONOCYTES 10 % (0-5); NEUTROPHILS 54 % (28-66)
[2022-07-31 11:31] LABS: PLATELET ESTIMATE NORMAL (NORMAL)
[2022-07-31 11:32] LABS: POLYCHROMASIA 1+
[2022-07-31 11:34] LABS: OVALOCYTES 1+; PLATELET CLUMPS SMALL AMT
[2022-07-31 13:28] VITALS: BP 139/69
== END 2022-07-31 13:29 | disposition home or self-care (01) ==
LOC: M ED 09:15
DX: R33.9 Retention of urine, unspecified (principal); N28.9 Disorder of kidney and ureter, unspecified; D73.89 Other diseases of spleen; R91.1 Solitary pulmonary nodule; E11.9 Type 2 diabetes mellitus without complications; E03.9 Hypothyroidism, unspecified; E78.9 Disorder of lipoprotein metabolism, unspecified; K21.9 Gastro-esophageal reflux disease without esophagitis; Z88.0 Allergy status to penicillin; Z88.1 Allergy status to other antibiotic agents; Z79.899 Other long term (current) drug therapy; Z79.890 Hormone replacement therapy; Z79.84 Long term (current) use of oral hypoglycemic drugs
CPT/HCPCS: 36415; 51702; 74177; 80047; 81000; 81015; 85025; 99284; Q9967

== ENCOUNTER → 2022-08-18 | Outpatient (REF) | payer MEDICARE ==
[~2022-08-18] MED LIST changes: +VALA1TAB5
[2022-08-18 15:25] LABS: APPEARANCE, URINE MANUAL CLOUDY (CLEAR); COLOR, URINE MANUAL YELLOW (YELLOW)
[2022-08-18 15:26] LABS: BILIRUBIN, URINE MANUAL NEGATIVE (NEGATIVE); GLUCOSE, URINE (UA) MANUAL NEGATIVE (NEGATIVE); KETONE, URINE MANUAL NEGATIVE (NEGATIVE); PROTEIN, URINE MANUAL 1+ mg/dL (NEGATIVE); UROBILINOGEN, URINE MANUAL NORMAL (NORMAL)
[2022-08-18 15:27] LABS: BLOOD URINE MANUAL POSITIVE (NEGATIVE); LEUKOCYTE ESTERASE, URINE MAN POSITIVE (NEGATIVE); NITRITE, URINE MANUAL POSITIVE (NEGATIVE)
[2022-08-18 16:01] LABS: BACTERIA, URINE LARGE AMOUNT; HYALINE CAST, URINE NONE SEEN /lpf (0-1); SQUAMOUS EPITHELIAL CELL URINE SMALL AMOUNT /hpf (SMALL AMT); WBC, URINE TNTC /hpf (0-3)
== END ==
LOC: M SFHCADAM 10:40
PROVIDERS: ATTEND Nurse Practitioner Women's Health
DX: R30.0 Dysuria (principal)

== ENCOUNTER → 2022-09-21 | Outpatient (CLI) | payer MEDICARE | LOC: M RAD 08:53 | PROVIDERS: ATTEND Physician Assistant Medical | DX: Q89.09 Congenital malformations of spleen (principal); N28.9 Disorder of kidney and ureter, unspecified ==

== ENCOUNTER → 2022-10-19 | Outpatient (REF) | payer MEDICARE ==
[2022-10-19 16:31] LABS: BASO # 0.1 10^3/uL (0.0-0.2); BASO % 0.7 % (0.0-1.0); EOS # 0.3 10^3/uL (0.0-0.5); EOS % 3.4 % (0.0-3.0); HEMATOCRIT 39.2 % (36.0-47.0); HEMOGLOBIN 12.3 g/dl (12.0-15.5); LYMPH # 2.1 10^3/uL (1.5-5.0); LYMPH % 25.6 % (24.0-44.0); MEAN CORPUSCULAR HEMOGLOBIN 28.5 pg (27.0-33.0); MEAN CORPUSCULAR HGB CONC 31.4 g/dl (32.0-36.5); MEAN CORPUSCULAR VOLUME 90.7 fl (80.0-96.0); MONO # 0.6 10^3/uL (0.0-0.8); MONO % 6.8 % (2.0-8.0); NEUTROPHILS # 5.2 10^3/uL (1.5-8.5); NEUTROPHILS % 62.9 % (36.0-66.0); PLATELET COUNT, AUTOMATED 207 10^3/uL (150-450); RED BLOOD COUNT 4.32 10^6/uL (4.00-5.40); WHITE BLOOD COUNT 8.3 10^3/uL (4.0-10.0)
[2022-10-19 17:02] LABS: CREATININE, URINE 91.8 MG/DL
[2022-10-19 17:07] LABS: ALBUMIN 3.6 G/DL (3.2-5.2); ALKALINE PHOSPHATASE 98 U/L (46-116); ALT/SGPT 16 U/L (7.0-40); AST/SGOT 21 U/L (<34); BILIRUBIN,TOTAL 0.2 MG/DL (0.3-1.2); BLOOD UREA NITROGEN 20 MG/DL (9-23); CALCIUM LEVEL 9.5 MG/DL (8.3-10.6); CARBON DIOXIDE LEVEL 27 MMOL/L (20-31); CHLORIDE LEVEL 102 MMOL/L (98-107); CHOLESTEROL LEVEL 141 MG/DL (<200); CHOLESTEROL RISK RATIO 2.25 (<5); CREATININE FOR GFR 0.87 MG/DL (0.55-1.30); GLOMERULAR FILTRATION RATE > 60.0 (>39); GLUCOSE, FASTING 169 MG/DL (74-106); HDL CHOLESTEROL 62.6 MG/DL (>40); LDL CHOLESTEROL 61.8 MG/DL (<100); NON-HDL-C 78 MG/DL; POTASSIUM SERUM 4.7 MMOL/L (3.5-5.1); SODIUM LEVEL 140 MMOL/L (136-145); TOTAL PROTEIN 6.4 G/DL (5.7-8.2); TRIGLYCERIDES LEVEL 83 MG/DL (<150)
[2022-10-19 19:39] LABS: HEMOGLOBIN A1c 6.3 % (4.0-6.0)
== END ==
LOC: M SFHCADAM 08:30
PROVIDERS: ATTEND Physician Assistant Medical
DX: E11.9 Type 2 diabetes mellitus without complications (principal); E78.2 Mixed hyperlipidemia

== ENCOUNTER → 2022-12-14 | Outpatient (REF) | payer MEDICARE ==
[2022-12-14 14:48] LABS: APPEARANCE, URINE MANUAL HAZY (CLEAR); BILIRUBIN, URINE MANUAL NEGATIVE (NEGATIVE); COLOR, URINE MANUAL YELLOW (YELLOW); GLUCOSE, URINE (UA) MANUAL TRACE(50 MG/DL) mg/dL (NEGATIVE); KETONE, URINE MANUAL NEGATIVE (NEGATIVE); PROTEIN, URINE MANUAL TRACE mg/dL (NEGATIVE); UROBILINOGEN, URINE MANUAL NORMAL (NORMAL)
[2022-12-14 14:49] LABS: BLOOD URINE MANUAL TRACE (NEGATIVE); LEUKOCYTE ESTERASE, URINE MAN POSITIVE (NEGATIVE); NITRITE, URINE MANUAL NEGATIVE (NEGATIVE)
[2022-12-14 15:07] LABS: BACTERIA, URINE MOD AMOUNT; HYALINE CAST, URINE NONE SEEN /lpf (0-1); MUCUS, URINE MOD AMOUNT (NEGATIVE); SQUAMOUS EPITHELIAL CELL URINE SMALL AMOUNT /hpf (SMALL AMT); WBC, URINE TNTC /hpf (0-3)
== END ==
LOC: M SFHCADAM 12:40
PROVIDERS: ATTEND Physician Assistant Medical
DX: R35.0 Frequency of micturition (principal)

== ENCOUNTER → 2023-02-08 | Outpatient (CLI) | payer MEDICARE | LOC: M SOG 08:01 | PROVIDERS: ATTEND Orthopaedic Surgery Adult Reconstructive Orthopaedic Surgery | DX: Z96.641 Presence of right artificial hip joint (principal) ==

== ENCOUNTER 2023-04-19 09:35 | Emergency (ER) | payer MEDICARE ==
[~2023-04-19] VITALS: Ht 165.1 cm; Wt 73.7 kg
[~2023-04-19 09:35] MED LIST changes: +FLUT50SP17; -FLUTISP
[2023-04-19 10:48] LABS: HEMATOCRIT 36.2 % (36.0-47.0); HEMOGLOBIN 12.1 g/dl (12.0-15.5); MEAN CORPUSCULAR HEMOGLOBIN 28.5 pg (27.0-33.0); MEAN CORPUSCULAR HGB CONC 33.4 g/dl (32.0-36.5); MEAN CORPUSCULAR VOLUME 85.4 fl (80.0-96.0); PLATELET COUNT, AUTOMATED 146 10^3/uL (150-450); RED BLOOD COUNT 4.24 10^6/uL (4.00-5.40); WHITE BLOOD COUNT 10.2 10^3/uL (4.0-10.0)
[2023-04-19 11:15] LABS: LIPASE 23 U/L (12-53)
[2023-04-19 11:17] LABS: ALBUMIN 3.4 G/DL (3.2-5.2); ALKALINE PHOSPHATASE 90 U/L (46-116); ALT/SGPT 16 U/L (7.0-40); AST/SGOT 15 U/L (<34); BILIRUBIN,DIRECT 0.2 MG/DL (<0.4); BILIRUBIN,TOTAL 0.7 MG/DL (0.3-1.2); BLOOD UREA NITROGEN 17 MG/DL (9-23); CALCIUM LEVEL 8.9 MG/DL (8.3-10.6); CARBON DIOXIDE LEVEL 25 MMOL/L (20-31); CHLORIDE LEVEL 92 MMOL/L (98-107); CREATININE FOR GFR 0.87 MG/DL (0.55-1.30); GLOMERULAR FILTRATION RATE > 60.0 (>32); GLUCOSE, FASTING 229 MG/DL (74-106); POTASSIUM SERUM 3.9 MMOL/L (3.5-5.1); SODIUM LEVEL 127 MMOL/L (136-145); TOTAL PROTEIN 6.5 G/DL (5.7-8.2)
[2023-04-19 11:37] LABS: ATYPICAL LYMPH 1 % (0-5); LYMPHOCYTES 3 % (16-44); MONOCYTES 2 % (0-5); NEUTROPHILS 88 % (28-66); PLATELET ESTIMATE NORMAL (NORMAL)
[2023-04-19 12:31] LABS: RSV AMPLIFICATION NEGATIVE (NEGATIVE)
[2023-04-19] MEDS ORDERED: ISOVUE-370 76% 100ML VIAL As Ordered ONE (12:52)
[2023-04-19 14:46] LABS: SODIUM,RANDOM URINE 30 MMOL/L
[2023-04-19 14:47] LABS: APPEARANCE, URINE CLEAR (CLEAR); BACTERIA, URINE AUTO NEGATIVE (NEGATIVE); BILIRUBIN, URINE AUTO NEGATIVE (NEGATIVE); BLOOD, URINE BLOOD NEGATIVE (NEGATIVE); COLOR, URINE YELLOW (YELLOW); GLUCOSE, URINE (UA) AUTO 1+ mg/dL (NEGATIVE); KETONE, URINE AUTO TRACE mg/dL (NEGATIVE); LEUKOCYTE ESTERASE, URINE AUTO NEGATIVE (NEGATIVE); MUCUS, URINE SMALL (NEGATIVE); NITRITE, URINE AUTO NEGATIVE (NEGATIVE); PROTEIN, URINE AUTO NEGATIVE (NEGATIVE); RBC, URINE AUTO 1 /HPF (0-3); SPECIFIC GRAVITY URINE AUTO 1.048 (1.002-1.035); SQUAMOUS EPITHELIAL CELL UR AU 0 /HPF (0-6); UROBILINOGEN, URINE AUTO 0.2 mg/dL (0.0-2.0); WBC, URINE AUTO 5 /HPF (0-3)
[2023-04-19 15:02] LABS: OSMOLALITY URINE 395 MOSM/KG (50-1400)
[2023-04-19] MEDS ORDERED: LEVO1TAB40 PO (15:57)
[2023-04-19 16:08] VITALS: BP 144/66; TEMP 100.1; O2SAT 94
[2023-04-19] MEDS ORDERED: ACETAMINOPHEN TAB 650MG DOSE (2X325MG) PO ONE ×2 (16:15)
== END 2023-04-19 16:23 | disposition home or self-care (01) ==
LOC: M ED 09:35
DX: J18.9 Pneumonia, unspecified organism (principal); E87.1 Hypo-osmolality and hyponatremia; E78.5 Hyperlipidemia, unspecified; E03.9 Hypothyroidism, unspecified; I10 Essential (primary) hypertension; E11.9 Type 2 diabetes mellitus without complications; Z96.641 Presence of right artificial hip joint; Z88.0 Allergy status to penicillin; Z88.1 Allergy status to other antibiotic agents; Z79.84 Long term (current) use of oral hypoglycemic drugs; Z79.899 Other long term (current) drug therapy
CPT/HCPCS: 36415; 71046; 74177; 80048; 80076; 81001; 83690; 83930; 83935; 84300; 85025; 87631; 99284; Q9967

== ENCOUNTER → 2023-04-26 | Outpatient (REF) | payer MEDICARE ==
[~2023-04-26] MED LIST changes: +LEVO1TAB40 PO
[2023-04-26 17:16] LABS: ALBUMIN 2.7 G/DL (3.2-5.2); BILIRUBIN,TOTAL 0.2 MG/DL (0.3-1.2); CALCIUM LEVEL 9.1 MG/DL (8.3-10.6); CHOLESTEROL RISK RATIO 4.62 (<5); CREATININE FOR GFR 0.96 MG/DL (0.55-1.30); GLOMERULAR FILTRATION RATE 59.5 (>32); HDL CHOLESTEROL 33.7 MG/DL (>40); LDL CHOLESTEROL 89.3 MG/DL (<100); NON-HDL-C 122.3 MG/DL; POTASSIUM SERUM 4.3 MMOL/L (3.5-5.1); TOTAL PROTEIN 6.1 G/DL (5.7-8.2)
[2023-04-26 17:19] LABS: THYROID STIMULATING HORMONE 2.426 uIU/ML (0.55-4.78)
[2023-04-26 17:23] LABS: HEMOGLOBIN A1c 7.3 % (4.0-6.0)
[2023-04-26 17:43] LABS: CREATININE, URINE 96.7 MG/DL; MALB URINE SIEMENS < 3.0 MG/L; MAU/CREAT RATIO 3.1 MCG/MG (0.0-30.0)
== END ==
LOC: M SFHCADAM 11:31
PROVIDERS: ATTEND Physician Assistant Medical
DX: E11.9 Type 2 diabetes mellitus without complications (principal); I10 Essential (primary) hypertension; E78.2 Mixed hyperlipidemia; E87.1 Hypo-osmolality and hyponatremia

== ENCOUNTER → 2023-04-26 | Outpatient (CLI) | payer MEDICARE | LOC: M ADAMS 11:35 | PROVIDERS: ATTEND Physician Assistant Medical | DX: J18.9 Pneumonia, unspecified organism (principal); R91.8 Other nonspecific abnormal finding of lung field ==

== ENCOUNTER → 2023-05-17 | Outpatient (CLI) | payer MEDICARE ==
[2023-05-17 14:58] LABS: BLOOD UREA NITROGEN 17 MG/DL (9-23); CALCIUM LEVEL 9.8 MG/DL (8.3-10.6); CARBON DIOXIDE LEVEL 28 MMOL/L (20-31); CHLORIDE LEVEL 106 MMOL/L (98-107); CREATININE FOR GFR 0.79 MG/DL (0.55-1.30); GLOMERULAR FILTRATION RATE > 60.0 (>32); GLUCOSE, FASTING 119 MG/DL (74-106); POTASSIUM SERUM 4.6 MMOL/L (3.5-5.1); SODIUM LEVEL 141 MMOL/L (136-145)
== END ==
LOC: M ADAMS 08:41
PROVIDERS: ATTEND Physician Assistant Medical
DX: E87.1 Hypo-osmolality and hyponatremia (principal)

== ENCOUNTER → 2023-05-26 | Outpatient (CLI) | payer MEDICARE | LOC: M SOG 08:47 | PROVIDERS: ATTEND Physician Assistant | DX: M79.645 Pain in left finger(s) (principal) ==

== ENCOUNTER 2023-06-23 06:03 | Day surgery (SDC) | payer MEDICARE ==
[~2023-06-23] VITALS: Ht 167.6 cm; Wt 71.6 kg
[~2023-06-23 06:03] MED LIST changes: +LIDOCAINE W/EPINEPHRINE 1% 20ML VIAL XX ONE; +SODIUM BICARBONATE 8.4% INJ 50MEQ 50ML VIAL XX ONE
[2023-06-23] MEDS ORDERED: BACITRACIN OINTMENT 30GM TUBE As Ordered ONE (07:57)
[2023-06-23 08:08] VITALS: BP 170/71; TEMP 96.9; O2SAT 98
== END 2023-06-23 08:19 | disposition home or self-care (01) ==
LOC: M SDC 06:03
PROVIDERS: ATTEND Orthopaedic Surgery Hand Surgery
DX: M65.332 Trigger finger, left middle finger (principal); I10 Essential (primary) hypertension; E11.9 Type 2 diabetes mellitus without complications; E78.00 Pure hypercholesterolemia, unspecified; E03.9 Hypothyroidism, unspecified; K21.9 Gastro-esophageal reflux disease without esophagitis; Z87.891 Personal history of nicotine dependence; Z79.899 Other long term (current) drug therapy; Z88.0 Allergy status to penicillin; Z88.1 Allergy status to other antibiotic agents

== ENCOUNTER → 2024-02-08 | Outpatient (CLI) | payer MEDICARE ==
[~2024-02-08] MED LIST changes: -FLUT50SP17; +FLUTISP; -LIDOCAINE W/EPINEPHRINE 1% 20ML VIAL XX ONE; -SODIUM BICARBONATE 8.4% INJ 50MEQ 50ML VIAL XX ONE
[2024-02-08 10:28] LABS: BASO % 0.7 % (0.0-1.0); EOS # 0.3 10^3/uL (0.0-0.5); EOS % 4.7 % (0.0-3.0); HEMATOCRIT 36.5 % (36.0-47.0); HEMOGLOBIN 11.9 g/dl (12.0-15.5); LYMPH # 1.8 10^3/uL (1.5-5.0); LYMPH % 29.8 % (24.0-44.0); MEAN CORPUSCULAR HEMOGLOBIN 28.7 pg (27.0-33.0); MEAN CORPUSCULAR HGB CONC 32.6 g/dl (32.0-36.5); MEAN CORPUSCULAR VOLUME 88.2 fl (80.0-96.0); MONO # 0.4 10^3/uL (0.0-0.8); MONO % 7.4 % (2.0-8.0); NEUTROPHILS # 3.4 10^3/uL (1.5-8.5); NEUTROPHILS % 57.2 % (36.0-66.0); PLATELET COUNT, AUTOMATED 143 10^3/uL (150-450); RED BLOOD COUNT 4.14 10^6/uL (4.00-5.40); WHITE BLOOD COUNT 5.9 10^3/uL (4.0-10.0)
[2024-02-08 10:55] LABS: CREATININE, URINE 85.2 MG/DL; MAU/CREAT RATIO 9.3 MCG/MG (0.0-30.0); THYROID STIMULATING HORMONE 3.383 uIU/ML (0.55-4.78)
[2024-02-08 10:58] LABS: ALBUMIN 3.8 G/DL (3.2-5.2); ALKALINE PHOSPHATASE 90 U/L (46-116); ALT/SGPT 19 U/L (7.0-40); AST/SGOT 16 U/L (<34); BILIRUBIN,TOTAL 0.4 MG/DL (0.3-1.2); BLOOD UREA NITROGEN 21 MG/DL (9-23); CALCIUM LEVEL 9.4 MG/DL (8.3-10.6); CARBON DIOXIDE LEVEL 31 MMOL/L (20-31); CHLORIDE LEVEL 105 MMOL/L (98-107); CHOLESTEROL LEVEL 164 MG/DL (<200); CHOLESTEROL RISK RATIO 3.08 (<5); CREATININE FOR GFR 0.95 MG/DL (0.55-1.30); GLOMERULAR FILTRATION RATE > 60.0 (>32); GLUCOSE, FASTING 145 MG/DL (74-106); HDL CHOLESTEROL 53.2 MG/DL (>40); LDL CHOLESTEROL 77.2 MG/DL (<100); NON-HDL-C 110.8 MG/DL; POTASSIUM SERUM 4.5 MMOL/L (3.5-5.1); SODIUM LEVEL 141 MMOL/L (136-145); TOTAL 25(OH) VITAMIN D 39.9 NG/ML (20.0-100.0); TOTAL PROTEIN 6.4 G/DL (5.7-8.2); TRIGLYCERIDES LEVEL 168 MG/DL (<150)
[2024-02-08 11:34] LABS: HEMOGLOBIN A1c 7.4 % (4.0-6.0)
== END ==
LOC: M PLALAB 08:27
PROVIDERS: ATTEND Physician Assistant Medical
DX: I10 Essential (primary) hypertension (principal); E11.9 Type 2 diabetes mellitus without complications; K75.81 Nonalcoholic steatohepatitis (NASH); Z79.899 Other long term (current) drug therapy

== ENCOUNTER → 2024-03-12 | Outpatient (REF) | payer MEDICARE ==
[2024-03-12 13:44] LABS: APPEARANCE, URINE CLOUDY (CLEAR); BACTERIA, URINE AUTO 2+ (NEGATIVE); BILIRUBIN, URINE AUTO NEGATIVE (NEGATIVE); BLOOD, URINE BLOOD NEGATIVE (NEGATIVE); COLOR, URINE YELLOW (YELLOW); GLUCOSE, URINE (UA) AUTO NEGATIVE (NEGATIVE); KETONE, URINE AUTO NEGATIVE (NEGATIVE); LEUKOCYTE ESTERASE, URINE AUTO 3+ (NEGATIVE); MUCUS, URINE SMALL (NEGATIVE); NITRITE, URINE AUTO NEGATIVE (NEGATIVE); PROTEIN, URINE AUTO 1+ mg/dL (NEGATIVE); RBC, URINE AUTO 11 /HPF (0-3); SPECIFIC GRAVITY URINE AUTO 1.009 (1.002-1.035); SQUAMOUS EPITHELIAL CELL UR AU 0 /HPF (0-6); TRANSITIONAL EPITHELIAL AUTO 2 /HPF; UROBILINOGEN, URINE AUTO 0.2 mg/dL (0.0-2.0); WBC, URINE AUTO TNTC /HPF (0-3)
== END ==
LOC: M LAB REF 12:45
PROVIDERS: ATTEND Physician Assistant Medical
DX: R33.9 Retention of urine, unspecified (principal)

== ENCOUNTER → 2024-04-04 | Outpatient (CLI) | payer MEDICARE | LOC: M RAD 12:43 | PROVIDERS: ATTEND Internal Medicine Pulmonary Disease | DX: R91.8 Other nonspecific abnormal finding of lung field (principal) ==

== ENCOUNTER → 2024-08-06 | Outpatient (REF) | payer MEDICARE | LOC: M SFHCPLAZ 17:34 | PROVIDERS: ATTEND Physician Assistant Medical | DX: R30.0 Dysuria (principal) ==

== ENCOUNTER → 2024-08-09 | Outpatient (REF) | payer MEDICARE ==
[~2024-08-09] MED LIST changes: +E-401CAP2 PO; -VITA400C83 PO
== END ==
LOC: M SFHCPLAZ 12:26
PROVIDERS: ATTEND Physician Assistant Medical
DX: R19.7 Diarrhea, unspecified (principal)

== ENCOUNTER → 2024-08-15 | Outpatient (REF) | payer MEDICARE | LOC: M SFHCPLAZ 12:47 | PROVIDERS: ATTEND Physician Assistant Medical | DX: R30.0 Dysuria (principal) ==

== ENCOUNTER → 2024-08-29 | Outpatient (CLI) | payer MEDICARE ==
[2024-08-29 13:40] LABS: BASO # 0.1 10^3/uL (0.0-0.2); BASO % 0.9 % (0.0-1.0); EOS # 0.4 10^3/uL (0.0-0.5); EOS % 5.6 % (0.0-3.0); HEMOGLOBIN 11.7 g/dl (12.0-15.5); LYMPH # 1.8 10^3/uL (1.5-5.0); MEAN CORPUSCULAR HEMOGLOBIN 28.5 pg (27.0-33.0); MEAN CORPUSCULAR HGB CONC 31.6 g/dl (32.0-36.5); MONO # 0.5 10^3/uL (0.0-0.8); MONO % 6.8 % (2.0-8.0); NEUTROPHILS % 59.4 % (36.0-66.0); PLATELET COUNT, AUTOMATED 150 10^3/uL (150-450); RED BLOOD COUNT 4.11 10^6/uL (4.00-5.40); WHITE BLOOD COUNT 6.8 10^3/uL (4.0-10.0)
[2024-08-29 13:46] LABS: ALBUMIN 3.8 G/DL (3.2-5.2); ALKALINE PHOSPHATASE 83 U/L (46-116); ALT/SGPT 16 U/L (7.0-40); AST/SGOT 14 U/L (<34); BILIRUBIN,TOTAL 0.4 MG/DL (0.3-1.2); BLOOD UREA NITROGEN 22 MG/DL (9-23); CALCIUM LEVEL 9.6 MG/DL (8.3-10.6); CARBON DIOXIDE LEVEL 29 MMOL/L (20-31); CHLORIDE LEVEL 108 MMOL/L (98-107); CHOLESTEROL LEVEL 163 MG/DL (<200); CHOLESTEROL RISK RATIO 2.91 (<5); CREATININE FOR GFR 0.86 MG/DL (0.55-1.30); GLOMERULAR FILTRATION RATE > 60.0 (>32); GLUCOSE, FASTING 170 MG/DL (74-106); LDL CHOLESTEROL 66.8 MG/DL (<100); POTASSIUM SERUM 4.4 MMOL/L (3.5-5.1); SODIUM LEVEL 141 MMOL/L (136-145); TOTAL PROTEIN 6.5 G/DL (5.7-8.2); TRIGLYCERIDES LEVEL 201 MG/DL (<150)
[2024-08-29 13:49] LABS: THYROID STIMULATING HORMONE 2.119 uIU/ML (0.55-4.78)
[2024-08-29 14:21] LABS: HEMOGLOBIN A1c 7.3 % (4.0-6.0)
== END ==
LOC: M PLALAB 09:00
PROVIDERS: ATTEND Physician Assistant Medical
DX: E11.9 Type 2 diabetes mellitus without complications (principal)

== ENCOUNTER → 2024-09-02 | Outpatient (REF) | payer MEDICARE ==
[2024-09-02 19:34] LABS: IRON (FE) 50 UG/DL (50-170); TOTAL IRON BINDING CAPACITY 333 UG/DL (250-425)
[2024-09-02 19:35] LABS: FERRITIN 18.6 NG/ML (7.3-270.7)
[2024-09-02 19:36] LABS: FOLATE > 24.0 NG/ML (>5.4); VITAMIN B12 LEVEL 358 PG/ML (211-911)
== END ==
LOC: M SFHCADAM 13:02
PROVIDERS: ATTEND Physician Assistant Medical
DX: D64.9 Anemia, unspecified (principal)

== ENCOUNTER → 2024-09-05 | Outpatient (REF) | payer MEDICARE | LOC: M SFHCADAM 17:27 | PROVIDERS: ATTEND Physician Assistant Medical | DX: D64.9 Anemia, unspecified (principal) ==

== ENCOUNTER → 2024-09-12 | Outpatient (REF) | payer MEDICARE | LOC: M SFHCADAM 11:32 | PROVIDERS: ATTEND Physician Assistant Medical | DX: D64.9 Anemia, unspecified (principal) ==

== ENCOUNTER → 2024-10-04 | Outpatient (CLI) | payer MEDICARE | LOC: M RAD 13:40 | PROVIDERS: ATTEND Physician Assistant Medical | DX: M25.561 Pain in right knee (principal); R60.0 Localized edema ==

== ENCOUNTER → 2024-10-08 | Outpatient (CLI) | payer MEDICARE | LOC: M RAD 10:17 | PROVIDERS: ATTEND Physician Assistant Medical | DX: K75.81 Nonalcoholic steatohepatitis (NASH) (principal) ==

== ENCOUNTER → 2024-11-26 | Outpatient (REF) | payer MEDICARE | LOC: M SFHCPLAZ 10:48 | DX: E11.9 Type 2 diabetes mellitus without complications (principal); E78.2 Mixed hyperlipidemia; K75.81 Nonalcoholic steatohepatitis (NASH); Z53.9 Procedure and treatment not carried out, unspecified reason ==

== ENCOUNTER → 2024-11-26 | Outpatient (CLI) | payer MEDICARE ==
[2024-11-26 13:18] LABS: CREATININE, URINE 32.5 MG/DL
[2024-11-26 13:19] LABS: MALB URINE SIEMENS < 3.0 MG/L
[2024-11-26 13:20] LABS: ALBUMIN 3.9 G/DL (3.2-5.2); ALKALINE PHOSPHATASE 94 U/L (35-104); ALT/SGPT 16 U/L (7.0-40); AST/SGOT 18 U/L (<34); BILIRUBIN,TOTAL 0.3 MG/DL (0.3-1.2); BLOOD UREA NITROGEN 21 MG/DL (9-23); CALCIUM LEVEL 9.4 MG/DL (8.3-10.6); CARBON DIOXIDE LEVEL 29 MMOL/L (20-31); CHLORIDE LEVEL 106 MMOL/L (98-107); CREATININE FOR GFR 0.89 MG/DL (0.55-1.30); GLOMERULAR FILTRATION RATE > 60.0 (>32); GLUCOSE, FASTING 134 MG/DL (74-106); POTASSIUM SERUM 4.5 MMOL/L (3.5-5.1); SODIUM LEVEL 143 MMOL/L (136-145); TOTAL PROTEIN 6.6 G/DL (5.7-8.2)
[2024-11-26 13:38] LABS: HEMOGLOBIN A1c 7.2 % (4.0-6.0)
== END ==
LOC: M PLALAB 11:25
DX: E78.2 Mixed hyperlipidemia (principal); E11.9 Type 2 diabetes mellitus without complications; K75.81 Nonalcoholic steatohepatitis (NASH)

== ENCOUNTER → 2024-12-23 | Outpatient (REF) | payer MEDICARE | LOC: M SFHCPLAZ 14:16 | PROVIDERS: ATTEND Student in an Organized Health Care Education/Training Program | DX: R35.0 Frequency of micturition (principal) ==

== ENCOUNTER → 2024-12-24 | Outpatient (REF) | payer MEDICARE | LOC: M SMT 14:43 | PROVIDERS: ATTEND Student in an Organized Health Care Education/Training Program | DX: R35.0 Frequency of micturition (principal) ==

== ENCOUNTER 2025-02-28 09:36 | Emergency (ER) | payer MEDICARE ==
[~2025-02-28] VITALS: Ht 167.6 cm; Wt 69.8 kg
[2025-02-28 09:45] VITALS: TEMP 97.5
[2025-02-28] MEDS ORDERED: OSEL75CA2 (09:52)
[2025-02-28] MEDS ORDERED: ONDA-282 (09:52)
[2025-02-28] MEDS ORDERED: ISOVUE-370 76% 100ML VIAL As Ordered ONE (12:59)
[2025-02-28 13:42] LABS: HEMATOCRIT 34.6 % (36.0-47.0); HEMOGLOBIN 11.4 g/dl (12.0-15.5); MEAN CORPUSCULAR HEMOGLOBIN 28.4 pg (27.0-33.0); MEAN CORPUSCULAR HGB CONC 32.9 g/dl (32.0-36.5); MEAN CORPUSCULAR VOLUME 86.3 fl (80.0-96.0); PLATELET COUNT, AUTOMATED 133 10^3/uL (150-450); RED BLOOD COUNT 4.01 10^6/uL (4.00-5.40); WHITE BLOOD COUNT 4.4 10^3/uL (4.0-10.0)
[2025-02-28 13:58] LABS: INR 0.94; PARTIAL THROMBOPLASTIN TIME 26.6 SECONDS (24.8-34.2); PROTHROMBIN TIME 12.9 SECONDS (12.5-14.5)
[2025-02-28] MEDS: NS 500 ML IV ONE (14:03)
[2025-02-28 14:10] LABS: CREATININE FOR GFR 1.14 MG/DL (0.55-1.30); GLOMERULAR FILTRATION RATE 48.1 (>32); POTASSIUM SERUM 4.5 MMOL/L (3.5-5.1)
[2025-02-28 14:40] LABS: ATYPICAL LYMPH 2 % (0-5); EOSINOPHILS 1 % (0-3); LYMPHOCYTES 27 % (16-44); MONOCYTES 2 % (0-5); NEUTROPHILS 68 % (28-66)
[2025-02-28 14:41] LABS: PLATELET ESTIMATE DECREASED (NORMAL)
[2025-02-28 15:48] LABS: APPEARANCE, URINE CLEAR (CLEAR); BACTERIA, URINE AUTO NEGATIVE (NEGATIVE); BILIRUBIN, URINE AUTO NEGATIVE (NEGATIVE); BLOOD, URINE BLOOD NEGATIVE (NEGATIVE); COLOR, URINE STRAW (YELLOW); GLUCOSE, URINE (UA) AUTO NEGATIVE (NEGATIVE); KETONE, URINE AUTO NEGATIVE (NEGATIVE); LEUKOCYTE ESTERASE, URINE AUTO NEGATIVE (NEGATIVE); NITRITE, URINE AUTO NEGATIVE (NEGATIVE); PROTEIN, URINE AUTO NEGATIVE (NEGATIVE); RBC, URINE AUTO 0 /HPF (0-3); SPECIFIC GRAVITY URINE AUTO 1.017 (1.002-1.035); SQUAMOUS EPITHELIAL CELL UR AU 1 /HPF (0-6); UROBILINOGEN, URINE AUTO 0.2 mg/dL (0.0-2.0); WBC, URINE AUTO 0 /HPF (0-3)
[2025-02-28 19:16] VITALS: BP 137/62; O2SAT 87
[2025-02-28] MEDS ORDERED: ASPI81TA26 PO (21:39)
== END 2025-02-28 21:48 | disposition left against medical advice (07) ==
LOC: M ED 09:36
DX: J09.X2 Influenza due to identified novel influenza A virus with other respiratory manifestations (principal); E11.9 Type 2 diabetes mellitus without complications; E78.00 Pure hypercholesterolemia, unspecified; E03.9 Hypothyroidism, unspecified; I10 Essential (primary) hypertension; K21.9 Gastro-esophageal reflux disease without esophagitis; Z88.0 Allergy status to penicillin; Z88.1 Allergy status to other antibiotic agents; Z79.1 Long term (current) use of non-steroidal anti-inflammatories (NSAID); Z79.84 Long term (current) use of oral hypoglycemic drugs; Z79.810 Long term (current) use of selective estrogen receptor modulators (SERMs); Z79.899 Other long term (current) drug therapy; Z53.9 Procedure and treatment not carried out, unspecified reason
CPT/HCPCS: 36415; 70450; 70496; 70498; 70551; 71046; 80048; 81001; 83605; 85025; 85610; 85730; 87486; 87581; 87633; 87798; 99284; Q9967

== ENCOUNTER 2025-05-22 09:55 | Day surgery (SDC) | payer MEDICARE ==
[~2025-05-22] VITALS: Ht 167.6 cm; Wt 70.3 kg
[~2025-05-22 09:55] MED LIST changes: +ASPI81TA26 PO; +ECOT81TA5 PO; +JARD1TAB3 PO; +ONDA-282; +OSEL75CA2; +PHENYLEPHRINE 10% OPHTH SOL 5ML OD PRN
[2025-05-22] MEDS ORDERED: MIDAZOLAM INJ 2 MG/2 ML VIAL As Ordered ONE (11:47)
[2025-05-22] MEDS: CYCLOPENTOLATE 1% OPHTH SOLN 2 ML BTL OD SCH (11:48)
[2025-05-22] MEDS: PHENYLEPHRINE 2.5% OPHTH SOL 2ML OD SCH (11:48)
[2025-05-22] MEDS: LIDOCAINE 3.5% 1 ML OPHTH TOPICAL GEL OU ONE (11:48)
[2025-05-22] MEDS: TROPICAMIDE 1% OPHTH SOLN 15ML OD SCH (11:48)
[2025-05-22] MEDS ORDERED: OFLOXACIN 0.3 % (OCUFLOX) OPTH SOL 5ML OD SCH (11:50)
[2025-05-22] MEDS: BSS IRRIG/VANCO(10MG)/TOBRA(5MG)/EPINEPH(1:1000-0.5CC)500ML BAG-ORONLY As Ordered ONE (12:44)
[2025-05-22] MEDS: CEFUROXIME 1 MG/0.1 ML INTRACAMERAL INJ As Ordered ONE (12:44)
[2025-05-22] MEDS: LIDOCAINE 1% SDV 5 ML VIAL As Ordered ONE (12:44)
[2025-05-22 13:16] VITALS: BP 162/67; TEMP 96.8; O2SAT 99
== END 2025-05-22 13:25 | disposition home or self-care (01) ==
LOC: M SDC 09:55
PROVIDERS: ATTEND Ophthalmology
DX: H25.11 Age-related nuclear cataract, right eye (principal)
CPT/HCPCS: 66984; J0697; J2250; J3010; V2632

== ENCOUNTER 2025-05-29 08:22 | Day surgery (SDC) | payer MEDICARE ==
[~2025-05-29] VITALS: Ht 167.6 cm; Wt 71.3 kg
[2025-05-29] MEDS: CEFUROXIME 1 MG/0.1 ML INTRACAMERAL INJ As Ordered ONE (07:05)
[~2025-05-29 08:22] MED LIST changes: +MIDAZOLAM INJ 2 MG/2 ML VIAL As Ordered ONE; -PHENYLEPHRINE 10% OPHTH SOL 5ML OD PRN; +PHENYLEPHRINE 10% OPHTH SOL 5ML OS PRN
[2025-05-29] MEDS ORDERED: BSS IRRIG/VANCO(10MG)/TOBRA(5MG)/EPINEPH(1:1000-0.5CC)500ML BAG-ORONLY ONE (08:23)
[2025-05-29] MEDS: TROPICAMIDE 1% OPHTH SOLN 15ML OS SCH (08:42)
[2025-05-29] MEDS: PHENYLEPHRINE 2.5% OPHTH SOL 2ML OS SCH (08:42)
[2025-05-29] MEDS: OFLOXACIN 0.3 % (OCUFLOX) OPTH SOL 5ML OS ONE (08:42)
[2025-05-29] MEDS: LIDOCAINE 3.5% 1 ML OPHTH TOPICAL GEL OU ONE (08:43)
[2025-05-29] MEDS: CYCLOPENTOLATE 1% OPHTH SOLN 2 ML BTL OS SCH (08:43)
[2025-05-29] MEDS: LIDOCAINE 1% SDV 5 ML VIAL As Ordered ONE (09:50)
[2025-05-29 10:05] VITALS: BP 152/67; TEMP 97; O2SAT 98
== END 2025-05-29 10:20 | disposition home or self-care (01) ==
LOC: M SDC 08:22
PROVIDERS: ATTEND Ophthalmology
DX: H25.12 Age-related nuclear cataract, left eye (principal); E11.9 Type 2 diabetes mellitus without complications; M19.90 Unspecified osteoarthritis, unspecified site; Z88.1 Allergy status to other antibiotic agents; Z88.0 Allergy status to penicillin; Z79.899 Other long term (current) drug therapy
CPT/HCPCS: 66984; J2250; J3010; V2632

== ENCOUNTER → 2025-06-03 | Outpatient (CLI) | payer MEDICARE ==
[~2025-06-03] MED LIST changes: -MIDAZOLAM INJ 2 MG/2 ML VIAL As Ordered ONE; -PHENYLEPHRINE 10% OPHTH SOL 5ML OS PRN
== END ==
LOC: M PLAIMG 14:20
PROVIDERS: ATTEND Nurse Practitioner Family
DX: M25.562 Pain in left knee (principal)

== ENCOUNTER → 2025-10-28 | Outpatient (CLI) | payer MEDICARE ==
[2025-10-28 13:46] LABS: ALT/SGPT 18.0 U/L (7.0-40); AST/SGOT 19.0 U/L (<34); CALCIUM LEVEL 8.9 MG/DL (8.3-10.6); CARBON DIOXIDE LEVEL 28.0 MMOL/L (20-31); CHLORIDE LEVEL 104.0 MMOL/L (98-107); CHOLESTEROL LEVEL 171.0 MG/DL (<200); CHOLESTEROL RISK RATIO 3.13 (<5); CREATININE FOR GFR 0.95 MG/DL (0.55-1.30); GLOMERULAR FILTRATION RATE 59.8 (>32); IRON (FE) 54.0 UG/DL (50-170); LDL CHOLESTEROL 70.9 MG/DL (<100); MAGNESIUM LEVEL 1.5 MG/DL (1.8-2.4); NON-HDL-C 116.5 MG/DL; PERCENT SATURATION 18.3 % (13.2-45.0); POTASSIUM SERUM 4.2 MMOL/L (3.5-5.1); SODIUM LEVEL 141.0 MMOL/L (136-145); TRIGLYCERIDES LEVEL 228.0 MG/DL (<150)
[2025-10-28 13:48] LABS: BASO # 0.1 10^3/uL (0.0-0.2); BASO % 1.0 % (0.0-1.0); EOS # 0.3 10^3/uL (0.0-0.5); EOS % 5.0 % (0.0-3.0); LYMPH # 1.6 10^3/uL (1.5-5.0); LYMPH % 23.7 % (24.0-44.0); MONO # 0.4 10^3/uL (0.0-0.8); MONO % 6.2 % (2.0-8.0); NEUTROPHILS # 4.3 10^3/uL (1.5-8.5); NEUTROPHILS % 63.8 % (36.0-66.0); PLATELET COUNT, AUTOMATED 198 10^3/uL (150-450)
[2025-10-28 13:50] LABS: FREE T4 1.16 NG/DL (0.89-1.76)
[2025-10-28 14:04] LABS: CREATININE, URINE 66.8 MG/DL; ESTIMATED AVERAGE GLUCOSE 160.0 MG/DL (60-110); MALB URINE SIEMENS 10.0 MG/L; MAU/CREAT RATIO 14.9 MCG/MG (0.0-30.0)
== END ==
LOC: M PLALAB 10:28
PROVIDERS: ATTEND Nurse Practitioner Family
DX: Z00.00 Encounter for general adult medical examination without abnormal findings (principal); D64.9 Anemia, unspecified; I10 Essential (primary) hypertension; E03.9 Hypothyroidism, unspecified; E11.9 Type 2 diabetes mellitus without complications; E78.2 Mixed hyperlipidemia